=== PATIENT | female | born 1965 | race Caucasian/White ===

== ENCOUNTER 2021-10-09 08:16 | Day surgery (SDC) | payer BC ==
--- NOTE | 2021-10-08 13:40 | HP ---
DATE OF SURGERY: 10/09/2021 HISTORY OF PRESENT ILLNESS: The patient presents with complaints of elevated calcium for the past year. She sees Dr. Allen. She had a Sestamibi scan demonstrating patient had inferior pole of the right thyroid with abnormal uptake consistent with a parathyroid adenoma. The patient desires removal. PAST MEDICAL HISTORY: None. PAST SURGICAL HISTORY: Tonsillectomy. ALLERGIES: PENICILLIN. MEDICATIONS: None. FAMILY HISTORY: Diabetes. Heart disease. Hypertension. SOCIAL HISTORY: None. REVIEW OF SYSTEMS: CONSTITUTIONAL: Denies fever or chills. CHEST: Denies shortness of breath. CVS: Denies chest pain. ABDOMEN: Denies abdominal pain. PHYSICAL EXAMINATION: GENERAL: No acute distress. CHEST: Nonlabored. No shortness of breath. CVS: Regular rate and rhythm. ABDOMEN: Soft, nontender. IMPRESSION: Right inferior parathyroid adenoma and chronic hypercalcemia. PLAN: Neck exploration with probable right inferior parathyroidectomy and [facility]'s monitor with Dr. Jamie Isaac. As dictated by Christiane Gaston NP.
[2021-10-09] MEDS ORDERED: Lactated Ringers 1,000 ML IV SCH (08:30)
[2021-10-09] MEDS ORDERED: Reglan 10 MG/2 ML IV ONE (09:05)
[2021-10-09] MEDS ORDERED: Versed 2 MG/2 ML Injection IV ONE (09:05)
[2021-10-09] MEDS ORDERED: Sodium Chloride 0.9% 1000 ML 1,000 ML IV SCH (09:30)
[2021-10-09] MEDS ORDERED: CLINDAMYCIN-D5W 900 MG/50 ML*** 900 MG/50 ML BAG IV ONE (09:44)
[2021-10-09] MEDS ORDERED: Pepcid 20 MG VIAL IV ONE (10:00)
[2021-10-09 10:12] LABS: ALBUMIN 3.6 g/dL (3.5-5.0); ALKALINE PHOSPHATASE 68 U/L (38-126); ANION GAP 11.5 MEQ/L (5-15); BLOOD UREA NITROGEN 14 mg/dL (7-17); CHLORIDE 109 mmol/L (98-107); Calcium 9.7 mg/dL (8.4-10.2); Carbon Dioxide 24 mmol/L (22-30); Creatinine 1 0.65 mg/dL (0.52-1.04); EST GLOMERULAR FILTRATION RATE > 60.0 ML/MIN; Glucose 90 mg/dL (74-106); Potassium 4.1 mmol/L (3.5-5.1); SGOT/AST 40 U/L (14-36); SGPT/ALT 14 U/L (0-35); SODIUM 140 mmol/L (137-145); Total Protein 6.4 g/dL (6.3-8.2)
[2021-10-09] MEDS ORDERED: Sensorcaine 0.25% 10 ML IJ ONE (13:26)
[2021-10-09] MEDS ORDERED: DEXMEDETOMIDINE 80 MCG/20ML-NS IV ONE (13:26)
[2021-10-09] MEDS ORDERED: Lactated Ringers 1,000 ML IV ONE (13:26)
[2021-10-09] MEDS ORDERED: Sodium Chloride 0.9% 1000 ML 1,000 ML IV ONE (13:26)
[2021-10-09] MEDS ORDERED: Xylocaine-Mpf 2% 5 Ml Vial IJ ONE (13:26)
[2021-10-09] MEDS ORDERED: Decadron 4 MG INJ IV ONE (13:26)
[2021-10-09] MEDS ORDERED: Quelicin Fliptop 200 MG/10 ML IJ ONE (13:26)
[2021-10-09] MEDS ORDERED: Ephedrine Sulfate 50 MG/ML IJ ONE (13:26)
[2021-10-09] MEDS ORDERED: DIPRIVAN 200 MG/20 ML IV ONE (13:26)
[2021-10-09] MEDS ORDERED: Pre-Attached Lta Kit TP ONE (13:26)
[2021-10-09] MEDS ORDERED: Zofran 4 MG/2 ML VIAL IV ONE (13:26)
[2021-10-09] MEDS ORDERED: SUBLIMAZE 100 MCG/2 ML IV ONE (13:26)
[2021-10-09] MEDS ORDERED: OFIRMEV 100 ML IV ONE (13:26)
[2021-10-09 14:37] VITALS: BP 126/95; PULSE 82; O2SAT 97
--- NOTE | 2021-10-09 15:19 | OP ---
SURGERY DATE/TIME: 10/09/2021 0937 PREOPERATIVE DIAGNOSIS: Hypercalcemia. POSTOPERATIVE DIAGNOSIS: Hypercalcemia. PROCEDURE: Eclectic of probable right anterior pole parathyroid gland. SURGEON: Jamie Isaac M.D. [employer] SALES: Thaddeus Mcneill M.D. ANESTHESIA: General. COMPLICATIONS: None. DRAINS: None. CONDITION: Stable. INDICATION: The patient has an elevated urine calcium. Her blood levels have been normal. Her calcium, level today was 9.7. She had a parathyroid scan which suggested right lower pole. DESCRIPTION OF PROCEDURE: She is taken to surgery. General anesthetic. Routine prep and drape. Traditional neck positioning for neck surgery. Limited collar incision. NIM's was also in place. With care and patience, the anterior field was developed. It was developed a little more on the right side than left side. There was an area down off of the thyroid about 8 mm below the thyroid which was about 1 cm long, about 3 mm wide, had some good dark color to it most consistent with a slightly enlarged right inferior pole parathyroid. There is an outside chance this could be a lymph node, this was left in place with dissection of the entire right field. The carotid was visible and palpable. Subclavian visible and palpable. Esophagus visible and palpable. Trachea visible and palpable. The nerve had been stimulated and the root was noted. The cephalad portion was satisfactory. The left side is then addressed. The general area of the inferior pole and general area of superior pole was visualized. Very small suggestion of glands at these two areas. There had also been a very small suggestion of gland at the right superior pole earlier. The general field was dissected and this was inspected visually and inspected with a fingertip behind the esophagus, behind the sheath, a little bit above the field, a little bit below the field was visualized or visualized and palpated. At this time it is just the one area, this area was taken with ties of 3-0 Vicryl. Specimen delivered right inferior pole specimen. Closed in layers with 4-0 Vicryl stitches. The patient tolerated the procedure satisfactorily. Pathology is pending. IMPRESSION: Very suspect right inferior pole nodule await permanent pathology and permanent calcium results.
[2021-10-09 15:20] LABS: Bacteria RARE /HPF (NEGATIVE)
[2021-10-09 15:21] LABS: Appearance CLEAR (CLEAR); Leukocyte Esterase NEGATIVE (NEGATIVE); Ph 8.5 (5-6); Specific Gravity 1.015 (1.005-1.025)
[2021-10-09 15:22] LABS: Bilirubin NEGATIVE (NEGATIVE); Blood NEGATIVE Ery/ul (0-5); Glucose NEGATIVE (NEGATIVE); Ketones NEGATIVE (NEGATIVE); Nitrite NEGATIVE (NEGATIVE); Protein,Urine Dip NEGATIVE (Negative); Urobilinogen 0.2 mg/dL (0-1)
== END 2021-10-09 13:27 | disposition home or self-care (01) ==
LOC: UNDOADMOB 08:16 → MED SURG 08:16 → SDC 08:16 → UNDODISOB 13:27 → SDC 13:27 → EDSTATUS 10-10 10:19
PROVIDERS: ATTEND Surgery
DX: D35.1 Benign neoplasm of parathyroid gland (principal); E83.52 Hypercalcemia
CPT/HCPCS: 36415; 80053; 81001; 88305; J0330; J1100; J2250; J2405; J2704; J3010